=== PATIENT | female | born 1960 | race Caucasian/White ===

== ENCOUNTER → 2017-01-13 | Outpatient (CLI) | payer BC ==
[~2017-01-13] MED LIST: ARIMIDEX1 MG PO; NITROSTAT0.4 MG SL; PRILOSEC20 M1 PO; [UNRECOGNIZED DRUG - OTHER] PO
--- NOTE | ~2017-01-13 | MR21 ---
[facility]. [facility] A Service [facility] RADIOLOGY TEXT RESULTS PATIENT: MARY CHO LOCATION: [facility] : 64 UNIT #: [id number] AGE: [address]: Jersey Olivera MD SEX: F ORDER DR: [id number] [address] [address] [id number] O MR#: [id number] Acc #: [id number] NAME: MARY CHO : 1960 SEX: F STUDY DATE/TIME: 01/13/2017 16:25 UNIT: [facility] ROOM: STUDY DESCRIPTION: MR Breast WWo Contrast Driss Attending Physician: Jersey Olivera M.D. Referring Physician: Jersey Olivera M.D. Ordering Physician: Jersey Olivera M.D. Primary Care Physician: Tommy Duarte M.D. MRI CENTER REPORT This report is preliminary unless electronic signature is present. EXAM Bilateral breast MRI HISTORY Malignant neoplasm in the upper/outer left breast. No current complaints. Previous lumpectomy in 2007. COMPARISON 01/08/2016. Compression mammogram 07/05/2016 PROTOCOL Initially the breasts were imaged with axial STIR T1 series and Vibrant series in axial and sagittal projections. Then the patient was given 13 mL MultiHance and multiphase axial followed by sagittal Vibrant imaging was performed. Subtraction images were generated. 3-D MIP images were generated. FINDINGS The visualized portions of the chest wall and liver appear normal. There is some volume loss in the left breast with stable skin thickening. Contrast enhancement is optimum. There are two small areas of progressive enhancement measuring 5 mm or less in the anterior lateral right breast which are stable. There is minimal background parenchymal enhancement. There is no enhancement in the left breast. IMPRESSION 1. There are stable postoperative changes in the left breast. 2. There is no concerning enhancement or morphology and there is no evidence of malignancy. BIRADS: 2 Benign findings. [facility] A Service of [facility] RADIOLOGY TEXT RESULTS PATIENT: MARY CHO LOCATION: [facility] : 64 UNIT #: [id number] AGE: [address]: Jersey Olivera MD SEX: F ORDER DR: Dictated by... Jeromy Aguilar M.D. THIS IS AN ELECTRONICALLY VERIFIED REPORT Jeromy Aguilar M.D. at 01/14/2017 11:43 AM GUILLE/cb TD: 01/14/2017 08:23 JOB #: [id number] MRI CENTER REPORT Page 1 of 1
== END | disposition home or self-care (01) ==
LOC: SMRI 15:37
DX: Z08 Encounter for follow-up examination after completed treatment for malignant neoplasm (principal); Z98.890 Other specified postprocedural states; Z85.3 Personal history of malignant neoplasm of breast
CPT/HCPCS: 0159T; A9581; C8908